=== PATIENT | male | born 1980 | race Caucasian/White ===

== ENCOUNTER 2017-03-24 08:35 | Emergency (ER) | payer OTHER ==
[2017-03-24 08:48] VITALS: BP 133/87
[2017-03-24] MEDS ORDERED: Tetracaine HCl/PF 0.5% 4 ML Bottle EYELF ONE (09:03)
[2017-03-24] MEDS ORDERED: Fluorescein 1 MG Ophth Strip EYELF ONE (09:03)
--- NOTE | 2017-03-24 09:07 | EDM.PDOC ---
ED HPI GENERAL MEDICAL PROBLEM - General Chief Complaint: Eye Problems Stated Complaint: HOT FLUCK IN LEFT EYE Time Seen by Provider: 03/24/17 09:06 Source of Information: Reports: Patient History Limitations: Reports: No Limitations - History of Present Illness INITIAL COMMENTS - FREE TEXT/NARRATIVE: 36 yo male presents with left eye pain after saudering and a piece of sauder flew into his eye. Onset: Today Duration: Constant Location: Reports: Face Quality: Reports: Ache, Burning, Throbbing Severity: Severe Improves with: Reports: Other (eye close) Worsens with: Reports: None Context: Reports: Activity Associated Symptoms: Reports: No Other Symptoms Left Eye Pain Score (Numeric/FACES): 7 - Related Data Allergies Allergy/AdvReac Type Severity Reaction Status Date / Time No Known Allergies Allergy Verified 03/24/17 08:51 Home Meds: Home Meds . [No Known Home Meds] 03/24/17 [History] Past Medical History - Past Surgical History HEENT Surgical History: Reports: Tonsillectomy Social & Family History - Tobacco Use Smoking Status *Q: Never Smoker - Caffeine Use Caffeine Use: Reports: Energy Drinks - Recreational Drug Use Recreational Drug Use: No ED ROS GENERAL - Review of Systems Review Of Systems: ROS reveals no pertinent complaints other than HPI. ED EXAM GENERAL W FULL EYE - Physical Exam Exam: See Below Exam Limited By: No Limitations General Appearance: Alert Eye Exam: Left Eye: Conjunctival Injection, Corneal Abrasion, Bilateral Eye: EOMI, PERRL Eyelids: Left: Lid Everted for Exam (No lacerations or FB present), Bilateral: Normal Appearance Conjunctiva & Sclera: Left: Injected Cornea Exam: Left: Corneal Abrasion (small pinpoint), Examined with Flourescein Extraocular Movements: Bilateral: Intact Pupils: Normal Accommodation Pupillary Size: Bilateral: 5 mm Pupillary Reaction: Bilateral: Brisk Anterior Chamber: Bilateral: Normal Appearance Respiratory/Chest: No Respiratory Distress, No Accessory Muscle Use, Chest Non- Tender Cardiovascular: Regular Rate, Rhythm, No Edema Course - Vital Signs Last Recorded V/S: Last Vital Signs Temp 97.8 F 03/24/17 08:46 Pulse 78 03/24/17 08:46 Resp 16 03/24/17 08:46 BP 133/87 03/24/17 08:46 Pulse Ox 98 03/24/17 08:46 - Orders/Labs/Meds Meds: Medications Discontinued Medications Generic Name Dose Route Start Last Admin Trade Name Micah PRN Reason Stop Dose Admin Fluorescein Sodium 1 mg 03/24/17 09:03 03/24/17 09:11 Ful-Neida EYELF 03/24/17 09:04 1 mg ONETIME ONE Administration Tetracaine HCl 1 ml 03/24/17 09:03 03/24/17 09:11 Tetracaine 0.5% Steri-Unit Sherry EYELF 03/24/17 09:04 1 ml ASDIRECTED ONE Administration Departure - Departure Time of Disposition: : Disposition: Home, Self-Care 01 Condition: Good Clinical Impression: Corneal abrasion Qualifiers: Encounter type: initial encounter Laterality: left Qualified Code(s): S05.02XA - Injury of conjunctiva and corneal abrasion without foreign body, left eye, initial encounter - Discharge Information Instructions: Corneal Abrasion Forms: ED Department Discharge Additional Instructions: Apply ointment four times a day. Follow up with Eye doctor in the next 2 days. Return for any worsening symptoms. Take motrin for pain.
[2017-03-24] MEDS ORDERED: Erythromycin Base 0.5% Ophth Oint 1 GM Tube EYELF ONE (10:00)
[2017-03-24] MEDS ORDERED: Erythromycin Base 0.5% Ophth Oint 1 GM Tube ONE (10:00)
== END 2017-03-24 10:10 | disposition home or self-care (01) ==
LOC: DL.ED 08:35
DX: S05.02XA Injury of conjunctiva and corneal abrasion without foreign body, left eye, initial encounter (principal); Z98.890 Other specified postprocedural states; X19.XXXA Contact with other heat and hot substances, initial encounter
CPT/HCPCS: 99283; A9270